=== PATIENT | male | born 1985 | race Caucasian/White ===

== ENCOUNTER 2019-01-04 13:20 | Emergency (ER) | payer OTHER, MEDICAID, SELFPAY ==
[2019-01-04 13:28] VITALS: BP 144/94; PULSE 105; RESP 18; O2SAT 96
[2019-01-04 14:00] VITALS: BP 167/99; PULSE 114; RESP 16; O2SAT 93
--- NOTE | 2019-01-04 14:03 | ED.GIBLEED ---
HPI - GI Bleed General Chief complaint: GI Bleed Stated complaint: Throwing Up Blood Time Seen by Provider: 01/04/19 13:23 Source: patient Mode of arrival: Ambulatory History of Present Illness HPI Narrative: 33-year-old male nonsmoker with extensive history of heavy alcohol consumption including at least 6 beers and 3 cocktails daily presents with 2 episodes today of a large volume of bright red emesis. He is a bit dizzy and lightheaded and has ongoing nausea. He denies any known history of varices. He has no history of GI bleed in the past and no known liver history. He has been drinking heavy for about 8 years. He denies the use of Tylenol, blood thinners or NSAIDs. He denies any known ulcers. He has had no change in bowel habits and denies black, dark or tarry stool. complaint: gross hematemesis Onset (ago): hour(s) Pain Consistency: constant Severity: moderate Relieving factors: none Exacerbating factors: none Context: alcohol abuse Associated symptoms: abdominal pain, nausea and loss of appetite Treatments Prior to Arrival: none Related Data Home Medications Medication Instructions Recorded Confirmed Pepcid AC 1 tab PO PRN PRN 01/04/19 01/04/19 naproxen sodium [Aleve] 220 mg PO PRN PRN 01/04/19 01/04/19 Allergies Allergy/AdvReac Type Severity Reaction Status Date / Time No Known Drug Allergies Allergy Verified 01/04/19 13:31 Review of Systems Constitutional Constitutional: Denies chills, Denies fatigue, Denies fever(s), Denies frequent falls, Denies lethargy and Denies weakness Eyes Eyes: Denies change in vision, Denies eye discharge, Denies irritation and Denies loss of vision ENT Ears, Nose, Mouth, and Throat: Denies change in voice, Denies dizziness, Denies neck pain, Denies sore throat and Denies throat swelling Cardiovascular Cardiovascular: Denies chest pain, Denies irregular heart rhythm, Denies lightheadedness, Denies palpitations, Denies dyspnea, Denies dyspnea on exertion and Denies orthopnea Respiratory Respiratory: Denies cough, Denies dyspnea, Denies dyspnea on exertion and Denies wheezing Gastrointestinal Gastrointestinal: Reports abdominal pain, Denies change in bowel habits, Denies diarrhea, Reports nausea, Reports vomiting and Reports hematemesis Genitourinary Genitourinary: Denies hematuria, Denies flank pain, Denies urinary incontinence and Denies urinary urgency Musculoskeletal Musculoskeletal: Denies back pain, Denies muscle weakness, Denies neck pain, Denies numbness and Denies tingling Integumentary/Breasts Skin/Breast: Denies pruritus, Denies erythema, Denies rash and Denies wounds Neurologic Neurologic: Denies behavioral changes, Denies confusion, Denies dizziness, Denies frequent falls, Denies loss of vision, Denies numbness, Denies tingling and Denies weakness Psychiatric Psychiatric: Denies anxiety, Denies behavioral changes, Denies confusion, Denies depression, Denies homicidal ideation and Denies suicidal ideation Endocrine Endocrine: Denies fatigue, Denies flushing and Denies palpitations Hematologic/Lymphatic Hematologic/Lymphatic: Denies easy bruising Allergic/Immunologic Allergic/Immunologic: Denies urticaria, Denies throat swelling and Denies wheezing PFSH Social History Smoking Status: Current every day smoker Social History Smoking Status: Current every day smoker Exam Narrative Exam Narrative: GENERAL: [33] year old patient appears stated age. Well-nourished, well-developed patient, in mild distress. Diaphoretic HEAD: Atraumatic. Normocephalic. EYES: Pupils equal round and reactive. Extraocular motions intact. No scleral icterus. No injection or drainage. ENT: Nose without bleeding, purulent drainage. Throat without erythema, tonsillar hypertrophy or exudate. Airway patent. NECK: Trachea midline. Non tender CARDIOVASCULAR: Tachycardic rate regular rhythm without murmurs, gallops, or rubs. RESPIRATORY: Clear to auscultation. Breath sounds equal bilaterally. No wheezes, rales, or rhonchi. GASTROINTESTINAL: Abdomen soft, generalized tenderness, nondistended. EXTREMITIES: No edema or joint tenderness. BACK: Nontender without deformity or crepitance. No flank tenderness. NEURO: AOx3. SKIN: No rash or erythema of visible areas Initial Vital Signs Initial Vital Signs: Vital Signs Pulse Rate 105 H 01/04/19 13:28 Respiratory Rate 18 01/04/19 13:28 Blood Pressure 144/94 H 01/04/19 13:28 Pulse Oximetry 96 01/04/19 13:28 Course Orders Ordered: ED Orders 01/04/19 14:00 Complete Blood Count AUTO DIFF Stat Comprehensive Metabolic Panel Stat Ethanol (ETOH) Stat Prothrombin Time INR Stat Type and Screen Stat 01/04/19 14:38 Lactate (Lactic Acid) Stat Octreotide Acetate 500 mcg/ (Sodium Chloride) 101 mls @ 10.1 mls/hr IV CONT OKSANA; Protocol Last Admin: 01/04/19 15:14 Dose: 50 mcg/hr, 10.1 mls/hr Documented by: EKTA Pantoprazole Sodium 80 mg/ (Sodium Chloride) 100 mls @ 10 mls/hr IV CONT OKSANA Last Admin: 01/04/19 15:10 Dose: 8 mg/hr, 10 mls/hr Documented by: EKTA Sodium Chloride (Normal Saline 0.9%) 1,000 mls @ 125 mls/hr IV CONT OSKANA Last Admin: 01/04/19 15:10 Dose: 125 mls/hr Documented by: EKTA Discontinued Medications Ceftriaxone Sodium/Dextrose (Rocephin) 2 gm in 50 mls @ 100 mls/hr IV NOW ONE Stop: 01/04/19 15:42 Last Infusion: 01/04/19 16:29 Dose: 0 mls/hr Documented by: Admin: 01/04/19 15:34 Dose: 100 mls/hr Documented by: EKTA Octreotide Acetate (Sandostatin) 50 mcg IV NOW ONE Stop: 01/04/19 14:15 Last Admin: 01/04/19 15:12 Dose: 50 mcg Documented by: EKTA Pantoprazole Sodium (Protonix) 80 mg IV NOW ONE Stop: 01/04/19 14:15 Last Admin: 01/04/19 15:12 Dose: 80 mg Documented by: EKTA Consultations Consultation #1: Dr. Torres consulted, happy to help care for the patient upon his arrival, recommends admission to hospitalist Consultation #2: Dr. Concepcion happy to accept Vital Signs Vital signs: Vital Signs - 8 hr 01/04/19 13:28 01/04/19 14:00 01/04/19 15:08 Pulse Rate 105 H 114 H 107 H Respiratory Rate 18 16 18 Blood Pressure 144/94 H Blood Pressure [Right Arm] 167/99 H 156/81 H Pulse Oximetry 96 93 95 MDM - GI Bleed Lab Data Result diagrams: 01/04/19 14:00 01/04/19 14:00 Labs: Lab Results 01/04/19 01/04/19 01/04/19 Range/Units 14:00 14:00 14:00 WBC 6.8 (4.5-11.0) X10^3/uL RBC 4.24 L (4.5-5.9) X10^6/uL Hgb 14.5 (13.5-17.5) g/dL Hct 42.5 (41-53) % MCV 100.3 H (80-100) fL MCH 34.2 H (26-34) PG MCHC 34.2 (30-36) % RDW 13.5 (11.6-14.8) % Plt Count 307 (150-400) X10^3/uL Neut % (Auto) 73.8 (50-75) % Lymph % (Auto) 17.0 L (25-40) % Platte % (Auto) 7.5 (3-14) % Eos % (Auto) 1.0 L (2-4) % Baso % (Auto) 0.7 (0-2) % Neut # (Auto) 5000 (0823-1601) /uL Lymph # (Auto) 1200 (6675-7970) /uL Platte # (Auto) 500 (0-900) /uL Eos # (Auto) 100 (0-450) /uL Baso # (Auto) 0 (0-100) /uL PT (10.1-12.7) SECONDS INR (0.9-1.3) Sodium 141 (137-145) mmol/L Potassium 3.9 (3.4-5.1) mmol/L Chloride 100 (98-107) mmol/L Carbon Dioxide 22 (22-32) mmol/L BUN 13 (9-20) mg/dL Creatinine 0.90 (0.66-1.25) mg/dL Estimated GFR > 60.0 (>60) mL/min BUN/Creatinine Ratio 14.4 (6-22) Glucose 130 H (70-100) mg/dL Lactate (0.7-2.1) mmol/L Calcium 9.3 (8.4-10.2) mg/dL Total Bilirubin 0.3 (0.2-1.3) mg/dL AST 51 (17-59) IU/L ALT 61 (21-72) IU/L Alkaline Phosphatase 71 (38-126) U/L Total Protein 8.0 (6.3-8.2) g/dL Albumin 4.8 (3.5-5.0) g/dL Globulin 3.2 (1.7-4.1) g/dL Albumin/Globulin Ratio 1.5 (1.0-2.8) Ethyl Alcohol ( - 10) mg/dL Blood Type A Positive Antibody Screen Negative 01/04/19 01/04/19 01/04/19 Range/Units 14:00 14:00 14:38 WBC (4.5-11.0) X10^3/uL RBC (4.5-5.9) X10^6/uL Hgb (13.5-17.5) g/dL Hct (41-53) % MCV (80-100) fL MCH (26-34) PG MCHC (30-36) % RDW (11.6-14.8) % Plt Count (150-400) X10^3/uL Neut % (Auto) (50-75) % Lymph % (Auto) (25-40) % Platte % (Auto) (3-14) % Eos % (Auto) (2-4) % Baso % (Auto) (0-2) % Neut # (Auto) (0333-6352) /uL Lymph # (Auto) (6944-2711) /uL Platte # (Auto) (0-900) /uL Eos # (Auto) (0-450) /uL Baso # (Auto) (0-100) /uL PT 10.8 (10.1-12.7) SECONDS INR 0.9 (0.9-1.3) Sodium (137-145) mmol/L Potassium (3.4-5.1) mmol/L Chloride (98-107) mmol/L Carbon Dioxide (22-32) mmol/L BUN (9-20) mg/dL Creatinine (0.66-1.25) mg/dL Estimated GFR (>60) mL/min BUN/Creatinine Ratio (6-22) Glucose (70-100) mg/dL Lactate 2.6 H (0.7-2.1) mmol/L Calcium (8.4-10.2) mg/dL Total Bilirubin (0.2-1.3) mg/dL AST (17-59) IU/L ALT (21-72) IU/L Alkaline Phosphatase (38-126) U/L Total Protein (6.3-8.2) g/dL Albumin (3.5-5.0) g/dL Globulin (1.7-4.1) g/dL Albumin/Globulin Ratio (1.0-2.8) Ethyl Alcohol 204 H ( - 10) mg/dL Blood Type Antibody Screen Critical Care Time Critical Care Time Critical Care Time: Yes Total Critical Care Time: 30 Attestation: The high probability of a clinically significant, sudden or life threatening deterioration of the [GI/CV] system(s) required my full and direct attention, intervention and personal management. The aggregate critical care time was [30] minutes. This time is in addition to time spent performing reported procedures but includes the following: [x] Data Review and interpretation [x] Patient assessment and monitoring of vital signs [x] Documentation [x] Medication orders and management Discharge Plan Departure Prescriptions: No Action naproxen sodium [Aleve] 220 mg Capsule 220 mg PO PRN PRN (Reason: pain) RF: 0 Pepcid AC 1 tab PO PRN PRN (Reason: Acid Reflux) RF: 0
[2019-01-04 14:15] LABS: Add Manual Diff / Slide Review NO; Basophils Absolute Auto 0 /uL (0-100); Basophils Percent Auto 0.7 % (0-2); Eosinophils Absolute Auto 100 /uL (0-450); Hematocrit 42.5 % (41-53); Hemoglobin 14.5 g/dL (13.5-17.5); Lymphocytes Absolute Auto 1200 /uL (1100-4500); Mean Corpuscular HGB Conc 34.2 % (30-36); Mean Corpuscular Hemoglobin 34.2 PG (26-34); Mean Corpuscular Volume 100.3 fL (80-100); Monocytes Absolute Auto 500 /uL (0-900); Monocytes Percent Auto 7.5 % (3-14); Neutrophils Absolute Auto 5000 /uL (1500-7000); Neutrophils Percent Auto 73.8 % (50-75); Platelet Count 307 X10^3/uL (150-400); Red Blood Cell Count 4.24 X10^6/uL (4.5-5.9); Red Cell Distribution Width 13.5 % (11.6-14.8); White Blood Cell Count 6.8 X10^3/uL (4.5-11.0)
[2019-01-04 14:27] LABS: Alanine Aminotransferase 61 IU/L (21-72); Albumin 4.8 g/dL (3.5-5.0); Albumin Globulin Ratio 1.5 (1.0-2.8); Alkaline Phosphatase 71 U/L (38-126); Aspartate Aminotransferase 51 IU/L (17-59); BUN Creatinine Ratio 14.4 (6-22); Bilirubin Total 0.3 mg/dL (0.2-1.3); Blood Urea Nitrogen 13 mg/dL (9-20); Calcium 9.3 mg/dL (8.4-10.2); Carbon Dioxide 22 mmol/L (22-32); Chloride 100 mmol/L (98-107); Estimated Glomerular Filt Rate > 60.0 mL/min (>60); Globulin 3.2 g/dL (1.7-4.1); Glucose 130 mg/dL (70-100); HEMOLYSIS < 15 (0-50); Potassium 3.9 mmol/L (3.4-5.1); Sodium 141 mmol/L (137-145)
[2019-01-04 14:53] LABS: Ethanol (ETOH) 204 mg/dL
[2019-01-04 14:56] LABS: Lactate (Lactic Acid) 2.6 mmol/L (0.7-2.1)
[2019-01-04 15:08] VITALS: BP 156/81; PULSE 107; RESP 18; O2SAT 95
[2019-01-04] MEDS: PANTOPRAZOLE 80 MG in SODIUM CHLORIDE 0.9% 100 ML 10 ML IV (15:10)
[2019-01-04] MEDS: SODIUM CHLORIDE 0.9% 1,000 ML 125 ML IV (15:10)
[2019-01-04] MEDS: PANTOPRAZOLE 40 MG VIAL 80 MG IV (15:12)
[2019-01-04] MEDS: OCTREOTIDE 100 MCG/ML VIAL 50 MCG IV (15:12)
[2019-01-04] MEDS: OCTREOTIDE 500 MCG in SODIUM CHLORIDE 0.9% 100 ML 10.1 ML IV (15:14)
[2019-01-04 15:28] LABS: INR 0.9 (0.9-1.3); Prothrombin Time 10.8 SECONDS (10.1-12.7)
[2019-01-04] MEDS: CEFTRIAXONE 2 GM/50 ML FROZ.PIGGY IV (15:34)
[2019-01-04 16:41] LABS: Reflexed Lactate in 2 Hours Y
== END 2019-01-04 17:25 | disposition short-term general hospital (02) ==
PROVIDERS: Emergency Provider Emergency Medicine
DX: K92.2 Gastrointestinal hemorrhage, unspecified (principal)
CPT/HCPCS: 36591; 80053; 80320; 83605; 85025; 85610; 86850; 86900; 86901; 96365; 96367; 96368; 96375; 99283; 99284; C9113; J0696; J2354

== ENCOUNTER → 2020-07-21 11:16 | Outpatient (CLI) | payer OTHER, MEDICAID, SELFPAY ==
[2020-07-21] MEDS: COVID-19 VACC, Ad26(JANSSEN)/PF 0.5 ML IM (11:30)
== END ==
PROVIDERS: Visit Provider Internal Medicine
DX: Z23 Encounter for immunization (principal)
CPT/HCPCS: 0031A; 91303

== ENCOUNTER → 2021-03-21 09:26 | Outpatient (CLI) | payer OTHER, MEDICAID, SELFPAY ==
--- NOTE | 2021-03-21 09:30 | DI.RAD.S_ITS ---
PROCEDURE: XR THORACIC SPINE 3V INDICATIONS: PAIN IN RIGHT HIP AND BACK TECHNIQUE: 3 views of the thoracic spine were acquired. COMPARISON: None. FINDINGS: Bones: No fractures or dislocations. No suspicious bony lesions. Very mild degenerative endplate changes in lower thoracic spine is seen. 12 pairs of ribs are noted, and appear intact where visualized. Soft tissues: No paravertebral stripe thickening. IMPRESSION: Very mild degenerative endplate changes in lower thoracic spine. No compression fracture or spondylolisthesis. Dictated by: Paulo Thomas M.D. on 03/21/2021 at 9:59 Approved by: Paulo Thomas M.D. on 03/21/2021 at 10:00
--- NOTE | 2021-03-21 09:30 | DI.RAD.S_ITS ---
PROCEDURE: XR LUMBAR SPINE 2-3V INDICATIONS: PAIN IN RIGHT HIP AND BACK TECHNIQUE: 3 views of the lumbar spine were acquired. COMPARISON: None. FINDINGS: Bones: 5 [id number] vertebrae are present. There is normal bony alignment. No vertebral body compression fractures. No suspicious bony lesions. Soft tissues: Overlying bowel gas pattern is normal. No suspicious soft tissue calcifications. IMPRESSION: Unremarkable radiographic examination of lumbar spine. Dictated by: Paulo Thomas M.D. on 03/21/2021 at 9:59 Approved by: Paulo Thomas M.D. on 03/21/2021 at 9:59
--- NOTE | 2021-03-21 09:30 | DI.RAD.S_ITS ---
PROCEDURE: XR HIP W PEL IF DONE RT 2V INDICATIONS: PAIN IN RIGHT HIP AND BACK TECHNIQUE: AP pelvis with lateral view(s) of the right hip(s). COMPARISON: None. FINDINGS: Bones: No fractures or dislocations. Mild right hip joint osteoarthritic changes are seen with superior joint space narrowing and subchondral sclerosis. No evidence of avascular necrosis of femoral head. Prominence of right femoral head neck junction is seen which can be seen associated with CAM type femoral acetabular impingement. Pelvic ring appears intact. No suspicious bony lesions. Soft tissues: The visualized bowel gas pattern is normal. No suspicious soft tissue calcifications. IMPRESSION: Mild right hip joint osteoarthritis. No fracture or dislocation. No evidence of avascular necrosis. Mild prominence of right femoral head neck junction which can be seen associated with CAM type femoral acetabular impingement. If indicated, MRI of hip can be done for further evaluation of internal derangement. Dictated by: Paulo Thomas M.D. on 03/21/2021 at 9:57 Approved by: Paulo Thomas M.D. on 03/21/2021 at 9:59
== END ==
PROVIDERS: PCP Physician Assistant; Referring Provider Physician Assistant; Visit Provider Physician Assistant
DX: M17.11 Unilateral primary osteoarthritis, right knee (principal); M25.551 Pain in right hip; M54.6 Pain in thoracic spine; M54.50 Low back pain, unspecified
CPT/HCPCS: 72072; 72100; 73502

== ENCOUNTER → 2022-04-29 15:15 | Outpatient (CLI) | payer OTHER, MEDICAID, SELFPAY ==
[2022-04-29 16:08] LABS: Add Manual Diff / Slide Review NO; Basophils Absolute Auto 0 /uL (0-100); Basophils Percent Auto 0.5 % (0-2); Eosinophils Absolute Auto 0 /uL (0-450); Eosinophils Percent Auto 0.8 % (2-4); Hematocrit 41.9 % (41-53); Hemoglobin 14.1 g/dL (13.5-17.5); Lymphocytes Absolute Auto 1200 /uL (1100-4500); Lymphocytes Percent Auto 19.7 % (25-40); Mean Corpuscular HGB Conc 33.6 % (30-36); Mean Corpuscular Hemoglobin 34.6 PG (26-34); Mean Corpuscular Volume 102.9 fL (80-100); Monocytes Absolute Auto 800 /uL (0-900); Monocytes Percent Auto 12.9 % (3-14); Neutrophils Absolute Auto 4000 /uL (1500-7000); Neutrophils Percent Auto 66.1 % (50-75); Platelet Count 234 X10^3/uL (150-400); Red Blood Cell Count 4.08 X10^6/uL (4.5-5.9); Red Cell Distribution Width 14.5 % (11.6-14.8)
[2022-04-29 16:22] LABS: Alanine Aminotransferase 56 IU/L (<50); Alkaline Phosphatase 76 U/L (38-126); Aspartate Aminotransferase 70 IU/L (17-59); BUN Creatinine Ratio 12.1 (6-22); Bilirubin Total 1.1 mg/dL (0.2-1.3); Blood Urea Nitrogen 11 mg/dL (9-20); Calcium 9.6 mg/dL (8.4-10.2); Carbon Dioxide 28 mmol/L (22-32); Chloride 94 mmol/L (98-107); Estimated Glomerular Filt Rate > 60 mL/min (>60); Glucose 98 mg/dL (70-100); Potassium 3.8 mmol/L (3.4-5.1); Sodium 134 mmol/L (137-145); Total Protein 8.3 g/dL (6.3-8.2)
[2022-04-29 17:08] LABS: Vitamin B12 479 pg/mL (239-931)
[2022-04-29 18:52] LABS: Thyroid Stimulating Hormone 2.56 uIU/mL (0.47-4.68)
[2022-05-03 15:53] LABS: Albumin 4.5 g/dL (3.5-5.0); Albumin Globulin Ratio 1.2 (1.0-2.8); Globulin 3.8 g/dL (1.7-4.1); HEMOLYSIS 24 (0-50)
== END ==
PROVIDERS: PCP Family Medicine; Referring Provider Family Medicine; Visit Provider Family Medicine
DX: F10.19 Alcohol abuse with unspecified alcohol-induced disorder (principal); K21.9 Gastro-esophageal reflux disease without esophagitis; R03.0 Elevated blood-pressure reading, without diagnosis of hypertension
CPT/HCPCS: 36415; 80053; 82607; 84443; 85025

== ENCOUNTER → 2022-10-31 15:56 | Outpatient (CLI) | payer OTHER, MEDICAID, SELFPAY ==
[2022-10-31 16:30] LABS: Add Manual Diff / Slide Review NO; Basophils Absolute Auto 100 /uL (0-100); Basophils Percent Auto 1.2 % (0-2); Eosinophils Absolute Auto 100 /uL (0-450); Eosinophils Percent Auto 0.9 % (2-4); Hematocrit 40.1 % (41-53); Hemoglobin 13.9 g/dL (13.5-17.5); Lymphocytes Absolute Auto 800 /uL (1100-4500); Lymphocytes Percent Auto 9.2 % (25-40); Mean Corpuscular HGB Conc 34.6 % (30-36); Mean Corpuscular Hemoglobin 37.5 PG (26-34); Mean Corpuscular Volume 108.5 fL (80-100); Monocytes Absolute Auto 500 /uL (0-900); Monocytes Percent Auto 6.4 % (3-14); Neutrophils Absolute Auto 7000 /uL (1500-7000); Neutrophils Percent Auto 82.3 % (50-75); Platelet Count 237 X10^3/uL (150-400); Red Cell Distribution Width 14.7 % (11.6-14.8); White Blood Cell Count 8.5 X10^3/uL (4.5-11.0)
[2022-10-31 16:53] LABS: Alanine Aminotransferase 89 IU/L (<50); Albumin 4.5 g/dL (3.5-5.0); Albumin Globulin Ratio 1.5 (1.0-2.8); Alkaline Phosphatase 73 U/L (38-126); Aspartate Aminotransferase 91 IU/L (17-59); BUN Creatinine Ratio 12.5 (6-22); Bilirubin Total 0.8 mg/dL (0.2-1.3); Blood Urea Nitrogen 11 mg/dL (9-20); Calcium 9.6 mg/dL (8.4-10.2); Carbon Dioxide 27 mmol/L (22-32); Chloride 98 mmol/L (98-107); Cholesterol 175 mg/dL (140-199); Estimated Glomerular Filt Rate > 60 mL/min (>60); Gamma Glutamyl Transpeptidase 71 U/L (15-73); Globulin 3.1 g/dL (1.7-4.1); Glucose 95 mg/dL (70-100); HDL Cholesterol 104 mg/dL (40-60); HEMOLYSIS 26 (0-50); LDL Cholesterol Calculated 60 mg/dL (<100); Potassium 4.1 mmol/L (3.4-5.1); Sodium 134 mmol/L (137-145); Total Protein 7.6 g/dL (6.3-8.2); Triglycerides 57 mg/dL (35-150)
[2022-10-31 17:09] LABS: Free T4, Direct Thyroxine 1.05 ng/dL (0.78-2.19)
[2022-10-31 17:22] LABS: Thyroid Stimulating Hormone 2.36 uIU/mL (0.47-4.68)
[2022-11-01 17:53] LABS: Hep C Virus Ab w/Reflex Quant NEGATIVE s/c (NEGATIVE)
== END ==
PROVIDERS: PCP Family Medicine; Referring Provider Nurse Practitioner Family; Visit Provider Nurse Practitioner Family
DX: Z11.59 Encounter for screening for other viral diseases (principal); Z13.220 Encounter for screening for lipoid disorders; I48.91 Unspecified atrial fibrillation; F10.10 Alcohol abuse, uncomplicated; R03.0 Elevated blood-pressure reading, without diagnosis of hypertension
CPT/HCPCS: 36415; 80053; 80061; 82977; 84439; 84443; 84481; 85025; 86803

== ENCOUNTER → 2022-11-11 07:52 | Outpatient (CLI) | payer OTHER, MEDICAID, SELFPAY ==
--- NOTE | 2022-11-11 | DI.ECHO.S_ITS ---
[facility] +---------+ : : [address] : : : : [id number] : : : : Phone: [phone] Echocardiogram Report + + :Name: MELLY NICHOLSON Study Date: 11/11/2022 Height: 75 in : :[facility] ReadingLocation: Weight: 255 lb : : Gender: Male BSA: 2.4 m2 : :: 1985 Age: 37 yrs BP: 160/108 mmHg: :Reason For Study: Atrial Fibrillation : :Ordering Physician: KATHRYN, : :SOM Goodwin Performed By: Ritika Vargas : :Referring: SOM PERALTA : + + Interpretation Summary The left ventricle is normal in size. The ejection fraction is estimated to be 60-65%. Left ventricular systolic function is normal. The right ventricle is normal size. The right ventricular systolic function is normal. All the valves were not well visualized however no gross significant abnormalities seen. The IVC is of normal diameter and collapses greater than 50% with a sniff. This suggests a low right atrial pressure of 3 mm Hg. Procedure: A two-dimensional transthoracic echocardiogram with color flow and Doppler was performed. The study quality was technically difficult. There is no prior echocardiogram noted for this patient. A contrast injection of Definity was performed to improve assessment of LV function. The patient was in normal sinus rhythm during the exam. Left Ventricle: The left ventricle is normal in size. There is no thrombus. The ejection fraction is estimated to be 60-65%. Left ventricular systolic function is normal. There are no focal wall motion abnormalities. Diastolic parameters suggest probable normal left ventricular diastolic function and normal filling pressures. Right Ventricle: The right ventricle is normal size. The right ventricular systolic function is normal. Atria: The left atrial size is normal. Right atrial size is normal. There is no Doppler evidence for an interatrial shunt. Mitral Valve: The mitral valve is normal. There is no mitral valve stenosis. There is no mitral regurgitation noted. Aortic Valve: The aortic valve is not well visualized. There is no aortic valve stenosis. No aortic regurgitation is present. Tricuspid Valve: The tricuspid valve is normal. There is no tricuspid stenosis. There is trace tricuspid regurgitation. Pulmonary artery pressures cannot be estimated because of the lack of a measurable TR jet velocity. Pulmonic Valve: The pulmonic valve is not well visualized. There is no pulmonic valvular stenosis. There is no pulmonic valvular regurgitation. Great Vessels: The aortic root is normal size. The ascending aorta is normal in size. The pulmonary artery is normal size. The IVC is of normal diameter and collapses greater than 50% with a sniff. This suggests a low right atrial pressure of 3 mm Hg. Pericardium/ Pleura There is no pericardial effusion. There is no pleural effusion. MMode/2D Measurements & Calculations LVOT diam: 2.0 cm LA A2 area: 12.2 cm2 Ao root diam: 3.2 cm LA A4 area: 18.5 cm2 asc Aorta Diam: 3.2 cm LA length (vol): 5.0 cm LA vol: 38.6 ml LA vol index: 15.9 ml/m2 RA long axis: 5.5 cm RVD1 (basal): 4.0 cm RA area: 20.4 cm2 RA vol: 64.5 ml RA : 26.5 ml/m2 LVLs ap4: 5.7 cm LVLd ap2: 6.2 cm LVLs ap2: 5.9 cm TAPSE_phl: 2.6 cm Doppler Measurements & Calculations Ao V2 max: 133.0 cm/sec LVOT Max Evelio: 93.3 cm/sec Ao V2 mean: 94.4 cm/sec LV V1 max P.5 mmHg Ao max P.0 mmHg LV V1 VTI: 20.7 cm Ao mean P.0 mmHg BRONSON(I,D): 2.2 cm2 Ao V2 VTI: 29.4 cm BRONSON(V,D): 2.2 cm2 sev ratio: 0.70 BRONSON indexed to BSA (cm^2/m^2): 0.91 MV E max evelio: 110.0 cm/sec PA V2 max: 86.6 cm/sec MV A max evelio: 72.4 cm/sec PA V2 mean: 61.8 cm/sec MV E/A: 1.5 PA mean P.0 mmHg Med Peak E' Evelio: 9.5 cm/sec PA pr(Accel): 38.5 mmHg E/E' med: 11.6 Lat Peak E' Evelio: 11.8 cm/sec E/E' lat: 9.3 E/e' average: 10.5 MV dec time: 0.17 sec SV(LVOT): 65.0 ml AV VR_phl: 0.70 BRONSON(VTI)/BSA_phl: 0.91 MV P1/2t-pr_phl: 50.0 msec Reading Physician:12:11 PM
== END ==
PROVIDERS: PCP Nurse Practitioner Family; Referring Provider Nurse Practitioner Family; Visit Provider Nurse Practitioner Family
DX: I48.91 Unspecified atrial fibrillation (principal)
CPT/HCPCS: 93306; Q9957

== ENCOUNTER → 2022-12-31 15:40 | Outpatient (CLI) | payer OTHER, MEDICAID, SELFPAY ==
--- NOTE | 2022-12-31 | DI.US.S_ITS ---
PROCEDURE: US THYROID INDICATIONS: THYROTOXICOSIS TECHNIQUE: Real-time scanning was performed of the thyroid gland, with image documentation. COMPARISON: None. FINDINGS: Right: Thyroid lobe measures 4.1 x 1.7 x 1.0 cm, and is homogeneous in echotexture. Left: Thyroid lobe measures 4.3 x 1.5 x 1.9 cm, and is homogenous in echotexture. Isthmus: 1.9 mm thick. Thyroid parenchyma is diffusely heterogenous without focal nodules. Vascularity is unremarkable. IMPRESSION: Diffusely heterogenous thyroid parenchyma without focal nodules ACR TI-RADS definitions and recommendations: TI-RADS 1 (benign): 0 points. FNA not needed. TI-RADS 2 (not suspicious): 2 points. FNA not needed. TI-RADS 3 (mildly suspicious): 3 points. * FNA if 2.5 cm or larger, follow up if 1.5 cm or larger (at 1, 3, and 5 years). TI-RADS 4 (moderately suspicious): 4-6 points. * FNA if 1.5 cm or larger, follow up if 1 cm or larger (at 1, 2, 3, and 5 years). TI-RADS 5 (highly suspicious): 7 points or more. * FNA if 1 cm or larger, follow up if 0.5 cm or larger (every year for 5 years). Approved by: Alirio Julien M.D. on 12/31/2022 at 16:21
== END ==
PROVIDERS: PCP Nurse Practitioner Family; Referring Provider Nurse Practitioner Family; Visit Provider Nurse Practitioner Family
DX: E05.90 Thyrotoxicosis, unspecified without thyrotoxic crisis or storm (principal)
CPT/HCPCS: 76536

== ENCOUNTER → 2023-02-26 11:03 | Outpatient (CLI) | payer OTHER, MEDICAID, SELFPAY ==
[2023-02-26 12:36] LABS: Add Manual Diff / Slide Review NO; Basophils Absolute Auto 0 /uL (0-100); Basophils Percent Auto 0.4 % (0-2); Eosinophils Absolute Auto 100 /uL (0-450); Eosinophils Percent Auto 1.4 % (2-4); Lymphocytes Absolute Auto 1000 /uL (1100-4500); Lymphocytes Percent Auto 18.5 % (25-40); Mean Corpuscular HGB Conc 34.1 % (30-36); Mean Corpuscular Hemoglobin 35.3 PG (26-34); Mean Corpuscular Volume 103.4 fL (80-100); Monocytes Absolute Auto 700 /uL (0-900); Monocytes Percent Auto 12.4 % (3-14); Neutrophils Absolute Auto 3600 /uL (1500-7000); Neutrophils Percent Auto 67.3 % (50-75); Platelet Count 283 X10^3/uL (150-400); Red Blood Cell Count 3.96 X10^6/uL (4.5-5.9); Red Cell Distribution Width 13.5 % (11.6-14.8); White Blood Cell Count 5.3 X10^3/uL (4.5-11.0)
[2023-02-26 13:21] LABS: Alanine Aminotransferase 50 IU/L (<50); Albumin 4.2 g/dL (3.5-5.0); Albumin Globulin Ratio 1.4 (1.0-2.8); Alkaline Phosphatase 67 U/L (38-126); Aspartate Aminotransferase 43 IU/L (17-59); BUN Creatinine Ratio 15.8 (6-22); Bilirubin Total 1.1 mg/dL (0.2-1.3); Blood Urea Nitrogen 12 mg/dL (9-20); Carbon Dioxide 26 mmol/L (22-32); Chloride 99 mmol/L (98-107); Estimated Glomerular Filt Rate > 60 mL/min (>60); Gamma Glutamyl Transpeptidase 99 U/L (15-73); Glucose 95 mg/dL (70-100); HEMOLYSIS < 15 (0-50); Potassium 4.6 mmol/L (3.4-5.1); Sodium 135 mmol/L (137-145); Total Protein 7.2 g/dL (6.3-8.2)
[2023-02-26 13:36] LABS: Free T3, Triiodothyronine Free 5.28 pg/mL (2.77-5.27); Free T4, Direct Thyroxine 1.11 ng/dL (0.78-2.19)
[2023-02-26 13:50] LABS: Thyroid Stimulating Hormone 1.44 uIU/mL (0.47-4.68)
[2023-02-26 14:12] LABS: Vitamin B12 431 pg/mL (239-931)
== END ==
PROVIDERS: PCP Nurse Practitioner Family; Referring Provider Nurse Practitioner Family; Visit Provider Nurse Practitioner Family
DX: E05.90 Thyrotoxicosis, unspecified without thyrotoxic crisis or storm (principal); R74.01 Elevation of levels of liver transaminase levels; D75.89 Other specified diseases of blood and blood-forming organs
CPT/HCPCS: 36415; 80053; 82607; 82977; 84439; 84443; 84481; 85025

== ENCOUNTER → 2023-06-30 10:47 | Outpatient (CLI) | payer OTHER, MEDICAID, SELFPAY ==
[2023-06-30 11:10] LABS: Add Manual Diff / Slide Review NO; Basophils Absolute Auto 0 /uL (0-100); Basophils Percent Auto 0.5 % (0-2); Eosinophils Absolute Auto 0 /uL (0-450); Eosinophils Percent Auto 0.8 % (2-4); Hematocrit 39.8 % (41-53); Hemoglobin 13.7 g/dL (13.5-17.5); Lymphocytes Absolute Auto 800 /uL (1100-4500); Lymphocytes Percent Auto 14.3 % (25-40); Mean Corpuscular HGB Conc 34.5 % (30-36); Mean Corpuscular Hemoglobin 36.9 PG (26-34); Monocytes Absolute Auto 900 /uL (0-900); Monocytes Percent Auto 15.5 % (3-14); Neutrophils Absolute Auto 4100 /uL (1500-7000); Neutrophils Percent Auto 68.9 % (50-75); Platelet Count 184 X10^3/uL (150-400); Red Blood Cell Count 3.72 X10^6/uL (4.5-5.9); Red Cell Distribution Width 13.4 % (11.6-14.8); White Blood Cell Count 5.9 X10^3/uL (4.5-11.0)
[2023-06-30 11:44] LABS: Alanine Aminotransferase 82 IU/L (<50); Albumin 4.1 g/dL (3.5-5.0); Albumin Globulin Ratio 1.2 (1.0-2.8); Alkaline Phosphatase 70 U/L (38-126); Aspartate Aminotransferase 97 IU/L (17-59); BUN Creatinine Ratio 15.2 (6-22); Bilirubin Total 1.1 mg/dL (0.2-1.3); Blood Urea Nitrogen 12 mg/dL (9-20); Calcium 9.5 mg/dL (8.4-10.2); Carbon Dioxide 23 mmol/L (22-32); Chloride 106 mmol/L (98-107); Estimated Glomerular Filt Rate > 60 mL/min (>60); Gamma Glutamyl Transpeptidase 98 U/L (15-73); Globulin 3.3 g/dL (1.7-4.1); Glucose 100 mg/dL (70-100); HEMOLYSIS < 15 (0-50); Potassium 4.1 mmol/L (3.4-5.1); Sodium 139 mmol/L (137-145); Total Protein 7.4 g/dL (6.3-8.2)
[2023-06-30 11:57] LABS: Free T3, Triiodothyronine Free 4.86 pg/mL (2.77-5.27); Free T4, Direct Thyroxine 1.04 ng/dL (0.78-2.19)
[2023-06-30 12:11] LABS: Thyroid Stimulating Hormone 1.74 uIU/mL (0.47-4.68)
[2023-06-30 12:45] LABS: Folate 10.2 ng/mL (2.76-20.0); Vitamin B12 488 pg/mL (239-931)
== END ==
LOC: LAB 10:48
PROVIDERS: PCP Nurse Practitioner Family; Referring Provider Nurse Practitioner Family; Visit Provider Nurse Practitioner Family
DX: E05.90 Thyrotoxicosis, unspecified without thyrotoxic crisis or storm (principal); D75.89 Other specified diseases of blood and blood-forming organs; R74.01 Elevation of levels of liver transaminase levels
CPT/HCPCS: 36415; 80053; 82607; 82746; 82977; 84439; 84443; 84481; 85025

== ENCOUNTER → 2023-07-11 13:37 | Outpatient (CLI) | payer OTHER, MEDICAID, SELFPAY ==
--- NOTE | 2023-07-11 13:39 | DI.US.S_ITS ---
PROCEDURE: US ABDOMEN COMPLETE INDICATIONS: Elevation of liver enzymes TECHNIQUE: Real-time scanning was performed of the abdominal and retroperitoneal organs, with image documentation. COMPARISON: None. FINDINGS: Liver: Moderately increased echogenicity. The posterior portion/deep field is not well seen. Gallbladder: Possible 5 millimeter polyp or stone. This is nonmobile. If this is of polyp, no dedicated follow-up imaging is necessary due to its small size. No sonographic Lacey sign. Biliary ducts: Intrahepatic bile ducts are non-dilated. Extrahepatic bile duct caliber measures 6 mm. Normal is 6-7 mm or less in diameter, or 10 mm or less post-cholecystectomy. Pancreas: Visualized portions of the pancreas are sonographically normal. Spleen: Spleen is normal in size and homogeneous in echotexture. Kidneys: Kidneys are normal in size and echotexture. Right kidney measures 12 cm long; left kidney measures 11 cm long. No hydronephrosis or nephrolithiasis. No solid masses. Aorta: Visualized aorta is normal in caliber at less than 3 cm. Iliacs: Proximal common iliac arteries are normal in caliber at less than 2.5 cm. IVC: Intrahepatic inferior vena cava is patent. Miscellaneous: No free abdominal fluid. IMPRESSION: Moderately increased hepatic echogenicity, most commonly due to steatosis, but can also be seen with other causes of liver disease. No pathologic biliary ductal dilation. Dictated by: Abel Gatica M.D. on 07/11/2023 at 15:42 Approved by: Abel Gatica M.D. on 07/11/2023 at 15:44
== END ==
PROVIDERS: PCP Nurse Practitioner Family; Referring Provider Nurse Practitioner Family; Visit Provider Nurse Practitioner Family
DX: R74.01 Elevation of levels of liver transaminase levels (principal)
CPT/HCPCS: 76700

== ENCOUNTER 2023-07-25 12:27 | Emergency (ER) | payer OTHER, MEDICAID, SELFPAY ==
[2023-07-25 12:32] VITALS: BP 158/89; PULSE 66; RESP 16; TEMP 36.6; O2SAT 99; BMI 32.5
--- NOTE | 2023-07-25 13:05 | PC.NURSE ---
R nare bleeding, pt states its has been intermittently bleeding most of the day. 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 having some clots and states can feel sinus filling with blood as well as upset stomach.
[2023-07-25] MEDS: OXYMETAZOLINE NASAL SPRAY 30 ML 2 SPRAYS NASAL (13:36)
--- NOTE | 2023-07-25 13:36 | ED.EPISTAXIS ---
HPI - Epistaxis <Natividad Minor PA-C - Last Filed: 07/25/23 14:35> General Chief complaint: Nasal Problem Stated complaint: bloody nose over 30 mins with clots Time Seen by Provider: 07/25/23 12:58 Source: patient and family Mode of arrival: Ambulatory History of Present Illness HPI Narrative: Patient is a 38-year-old male with history of hypertension, 1 episode of AFib presenting after morning of nose bleeding. He denies anticoagulant use. He reports that the bleeding initially started 2 days ago on Friday out of his left [place]. He states it bled for 5-6 minutes, he blew out a clot then it stopped. He attributed to his increased allergies and nasal irritation in the area he was working in [place]. He reports that he had bleeding from his right naris the following day with a similar duration 5-6 minutes and that stopped on its own. He denies clots on that day. He reports that today around noon, bleeding started again from his left near. He states that he is blown out multiple clots about a quarter-sized. He states that it came out as a Flood peel. He feels that his stomach is filling up with blood. He states that when he pinched the left side close, he felt his sinus fill with blood in it started drip out of his right nare. He reports feeling tired, but denies lightheadedness. He does endorse a headache this morning. Related Data Home Medications Medication Instructions Recorded Confirmed Pepcid AC 1 tab PO PRN PRN Acid Reflux 01/04/19 01/04/19 naproxen sodium 220 mg capsule 220 mg PO PRN PRN pain 01/04/19 01/04/19 (Aleve) Allergies Allergy/AdvReac Type Severity Reaction Status Date / Time No Known Drug Allergies Allergy Verified 01/04/19 13:31 Review of Systems <Natividad Minor PA-C - Last Filed: 07/25/23 14:35> Review of Systems Narrative: See HPI Patient History <Natividad Minor PA-C - Last Filed: 07/25/23 14:35> Social History Smoking Status: Former smoker Smoking Status: Former smoker alcohol intake frequency: 0-2 drinks per day Alcohol type: beer and hard liquor Substance Use Type: does not use Exam <Natividad Minor PA-C - Last Filed: 07/25/23 14:35> Initial Vital Signs Initial Vital Signs: Vital Signs Temperature 97.9 F 07/25/23 12:32 Pulse Rate 66 07/25/23 12:32 Respiratory Rate 16 07/25/23 12:32 Blood Pressure 158/89 H 07/25/23 12:32 Pulse Oximetry 99 07/25/23 12:32 Oxygen Delivery Method Room Air 07/25/23 12:32 GENERAL: 38 year old patient appears stated age. Well-developed patient, in no acute distress, pinching left nostril closed. HEAD: Atraumatic. Normocephalic. EYES: Pupils equal round. No scleral icterus. No injection or drainage. ENT: Inferior aspect of left nare has small amount of blood present, no bleeding noted in the upper turbinates, there is presence of increased swelling in bilateral nares. No source of active bleeding seen on visual exam. Patient has small bloody nasal drip during interview, no evidence of blood in the back of patient's throat during evaluation, no bleeding from gums or evidence of petechiae. RESPIRATORY: Speaking comfortably in normal tone of voice with no increased work of breathing. NEURO: AOx3. SKIN: No rash or erythema of visible areas, <Princess Pulido DO - Last Filed: 08/01/23 11:17> Initial Vital Signs Initial Vital Signs: Vital Signs Temperature 97.9 F 07/25/23 12:32 Pulse Rate 66 07/25/23 12:32 Respiratory Rate 16 07/25/23 12:32 Blood Pressure 158/89 H 07/25/23 12:32 Pulse Oximetry 99 07/25/23 12:32 Oxygen Delivery Method Room Air 07/25/23 12:32 Course <Natividad Minor PA-C - Last Filed: 07/25/23 14:35> Orders Ordered: Discontinued Medications Oxymetazoline HCl (Oxymetazoline Nasal [place] 30 Ml) 2 sprays NASAL NOW ONE Stop: 07/25/23 13:21 Last Admin: 07/25/23 13:36 Dose: 2 sprays Documented By: CTS Vital Signs Vital signs: Vital Signs - 8 hr 07/25/23 12:32 07/25/23 14:26 Temperature 97.9 F Pulse Rate 66 75 Respiratory Rate 16 Blood Pressure 158/89 H 112/74 Pulse Oximetry 99 100 Oxygen Delivery Method Room Air Room Air <Princess Pulido DO - Last Filed: 08/01/23 11:17> Orders Ordered: Discontinued Medications Oxymetazoline HCl (Oxymetazoline Nasal [place] 30 Ml) 2 sprays NASAL NOW ONE Stop: 07/25/23 13:21 Last Admin: 07/25/23 13:36 Dose: 2 sprays Documented By: CTS Vital Signs Vital signs: Vital Signs - 8 hr 07/25/23 12:32 07/25/23 14:26 Temperature 97.9 F Pulse Rate 66 75 Respiratory Rate 16 Blood Pressure 158/89 H 112/74 Pulse Oximetry 99 100 Oxygen Delivery Method Room Air Room Air MDM - Epistaxis <Natividad Minor PA-C - Last Filed: 07/25/23 14:35> MDM Narrative Medical decision making narrative: Patient is a 38-year-old male presenting for evaluation after a nosebleed ongoing for about 2 hours today with presence of clots. At present in the ER, bleed is a light drip and has improved after Afrin spray. Multiple etiologies for patient's symptoms considered including, but not limited to: Allergic rhinitis, anterior versus posterior bleed Discussed case with Dr. Pulido. Since bleeding is controlled with a drip, recommend clamping nares times 60 minutes after Afrin use. If bleeding still continues, she recommends using rhino rocket. Patient's bleeding stopped after conservative treatment with clamping and Afrin. Discussed with patient that he is clear for discharge home. Advised him to repeat treatment from today if bleeding should return. Advised him to follow up in the ER if bleeding becomes profuse again. Discussed that he may need further follow up with his primary care provider and I advised him to call and make an appointment to have continued follow up especially if bleeding should continue. He is agreeable with plan of care and feels comfortable going home. Patient's symptoms improved over duration of stay with above-stated therapies. Findings and discharge diagnosis discussed with patient/family followed by verbalization of understanding Return precautions discussed with patient/family whom verbalize understanding of diagnosis and plan Discharge Plan Departure Patient Disposition: Home Clinical Impression: Epistaxis Activity Restrictions/Additional Instructions: *You have been diagnosed with epistaxis which is a bloody nose. Your bleeding stopped today after use of Afrin and clamping. I recommend that if it starts bleeding again, you apply Afrin and use the nasal clamp for 60 minutes. You may apply ice to help reduce the bleeding as well. I recommend you lean forward instead of leaning back. Please follow up for further evaluation in the ER if you should have profuse bleeding despite nasal clamping and Afrin use, have lightheadedness or other concerning signs or symptoms. If you continue to have nosebleeds, I recommend that you continue follow up with your primary care provider for further investigation if nosebleeds continue. *Please follow up with your primary care provider in 2-3 days, call for an appointment. Let them know you were seen in the Emergency Department and that we ask that you be seen in follow up. We will electronically transmit a record of today's note if your PCP is in our system *If you do not have a primary care provider please contact the [facility] Resource line at [phone]. They will ask some questions about your medical history and help get you set up with a doctor in the community. *Return to Emergency Department if you should have any new, worsening or concerning symptoms, such as profuse nasal bleeding, lightheadedness, severe fatigue or other concerning signs or symptoms. Prescriptions: No Action naproxen sodium [Aleve] 220 mg Capsule 220 mg PO PRN PRN (Reason: pain) Pepcid AC 1 tab PO PRN PRN (Reason: Acid Reflux) Referrals: Harper Andujar RN [Primary Care Provider] - Stand Alone Forms: Patient Portal/API ED Sign-out <Princess Pulido DO - Last Filed: 08/01/23 11:17> Cosign ED Attending Nery Attestation: I was available for consultation.
[2023-07-25 14:26] VITALS: BP 112/74; PULSE 75; O2SAT 100
--- NOTE | 2023-07-25 14:26 | PC.NURSE ---
bleeding controlled at this time
== END 2023-07-25 14:35 | disposition home or self-care (01) ==
PROVIDERS: Emergency Provider Physician Assistant; PCP Nurse Practitioner Family
DX: R04.0 Epistaxis (principal)
CPT/HCPCS: 99282; 99283

== ENCOUNTER 2025-02-17 10:22 | Observation (INO) | payer OTHER, SELFPAY ==
[2025-02-17 10:24] VITALS: BP 132/86; PULSE 78; RESP 14; TEMP 36.9; O2SAT 99; BMI 34.7
[2025-02-17 10:43] LABS: Add Manual Diff / Slide Review NO; Hematocrit 38.9 % (41-53); Hemoglobin 13.7 g/dL (13.5-17.5); Lymphocytes Absolute Auto 800 /uL (1100-4500); Mean Corpuscular HGB Conc 35.1 % (30-36); Mean Corpuscular Hemoglobin 38.0 PG (26-34); Mean Corpuscular Volume 108.1 fL (80-100); Platelet Count 241 X10^3/uL (150-400)
--- NOTE | 2025-02-17 10:45 | DI.CT.S_ITS ---
PROCEDURE: CT ABDOMEN PELVIS W CON
--- NOTE | 2025-02-17 10:45 | ED_ITS ---
HPI - Abdominal Pain
--- NOTE | 2025-02-17 10:45 | ED.ABDPAIN ---
HPI - Abdominal Pain General Chief Complaint: Abdominal Pain Stated Complaint: per patient possible Appendicitis. Time Seen by Provider: 02/17/25 10:37 Source: patient Mode of arrival: Ambulatory History of Present Illness HPI narrative: 39-year-old gentleman history of hypertension presents with 2 episodes of nonbilious nonbloody nausea vomiting along with diarrhea in abdominal pain that starts with periumbilical pain radiating to right lower quadrant. Patient did try taking some Imodium with no significant relief of symptoms and a hot shower. He denies back pain, rectal bleeding, hematuria, fever, chills, body aches, cough, chest pain, shortness breath, constipation. Other than what is stated 14 point review system is negative. Related Data Home Medications ?Medication ?Instructions ?Recorded ?Confirmed Pepcid AC 1 tab PO PRN PRN Acid Reflux 01/04/19 01/04/19 naproxen sodium 220 mg capsule 220 mg PO PRN PRN pain 01/04/19 01/04/19 (Aleve) Allergies Allergy/AdvReac Type Severity Reaction Status Date / Time No Known Drug Allergies Allergy Verified 02/17/25 10:24 Review of Systems Review of Systems ROS Unobtainable: All systems reviewed & are unremarkable except as noted in HPI and below Patient History Social History Smoking Status: Unknown if ever smoked Smoking Status: Unknown if ever smoked alcohol intake frequency: 0-2 drinks per day Alcohol type: beer and hard liquor Exam Narrative Exam Narrative: GENERAL: [39] year old patient appears stated age. Well-developed patient, in mild distress. HEAD: Atraumatic. Normocephalic. EYES: Pupils equal round and reactive. Extraocular motions intact. No scleral icterus. No injection or drainage. ENT: Nose without bleeding, purulent drainage. Throat without erythema, tonsillar hypertrophy or exudate. Airway patent. NECK: Trachea midline. Non tender CARDIOVASCULAR: Regular rate and rhythm without murmurs, gallops, or rubs. RESPIRATORY: Clear to auscultation. Breath sounds equal bilaterally. No wheezes, rales, or rhonchi. GASTROINTESTINAL: Abdomen soft, periumbilical and right lower quadrant TTP no r/r/g, nondistended. EXTREMITIES: No edema or joint tenderness. BACK: Nontender without deformity or crepitance. No flank tenderness. NEURO: AOx3. SKIN: No rash or erythema of visible areas Initial Vital Signs Initial Vital Signs: Vital Signs Temperature 98.4 F 02/17/25 10:24 Pulse Rate 78 02/17/25 10:24 Respiratory Rate 14 02/17/25 10:24 Blood Pressure 132/86 02/17/25 10:24 Pulse Oximetry 99 02/17/25 10:24 Oxygen Delivery Method Room Air 02/17/25 10:24 Course Orders Ordered: ED Orders 02/17/25 10:37 Complete Blood Count AUTO DIFF Stat Comprehensive Metabolic Panel Stat Lipase Stat 02/17/25 10:45 CT abdomen pelvis w con Stat Hydromorphone HCl (Hydromorphone 1 Mg/Ml Syringe) 1 mg IV NOW ONE Stop: 02/17/25 12:56 Piperacillin Sod/Tazobactam (Sod 4.5 gm/ Sodium Chloride) 100 mls @ 200 mls/hr IV NOW ONE Stop: 02/17/25 12:56 Ondansetron HCl (Ondansetron 4 Mg/2 Ml Inj) 4 mg IV NOW PRN PRN Reason: Nausea And Vomiting Ondansetron HCl (Ondansetron 4 Mg Odt) 4 mg PO NOW PRN PRN Reason: Nausea And Vomiting Ondansetron HCl (Ondansetron 4 Mg Odt) 4 mg PO NOW PRN PRN Reason: Nausea And Vomiting Discontinued Medications Lactated Ringer's (Lactated Ringers) 1,000 mls @ 1,000 mls/hr IV BOLUS ONE Stop: 02/17/25 11:44 Last Infusion: 02/17/25 12:23 Dose: Infused Documented By: Admin: 02/17/25 10:53 Dose: 1,000 mls/hr Documented By: CELESTE Ketorolac Tromethamine (Ketorolac 30 Mg/Ml Vial) 15 mg IV NOW ONE Stop: 02/17/25 10:46 Last Admin: 02/17/25 10:53 Dose: 15 mg Documented By: CELESTE Ondansetron HCl (Ondansetron 4 Mg/2 Ml Inj) 4 mg IV NOW ONE Stop: 02/17/25 10:46 Last Admin: 02/17/25 10:53 Dose: 4 mg Documented By: CELESTE Vital Signs Vital signs: Vital Signs - 8 hr 02/17/25 10:24 Temperature 98.4 F Pulse Rate 78 Respiratory Rate 14 Blood Pressure 132/86 Pulse Oximetry 99 Oxygen Delivery Method Room Air MDM - Abdominal Pain Lab Data 02/17/25 10:37 02/17/25 10:37 Labs: Lab Results 02/17/25 Range/Units 10:37 WBC 9.7 (4.5-11.0) X10^3/uL RBC 3.59 L (4.5-5.9) X10^6/uL Hgb 13.7 (13.5-17.5) g/dL Hct 38.9 L (41-53) % MCV 108.1 H (80-100) fL MCH 38.0 H (26-34) PG MCHC 35.1 (30-36) % RDW 15.2 H (11.6-14.8) % Plt Count 241 (150-400) X10^3/uL Neut % (Auto) 82.3 H (50-75) % Lymph % (Auto) 8.5 L (25-40) % [place] % (Auto) 8.1 (3-14) % Eos % (Auto) 0.4 L (2-4) % Baso % (Auto) 0.7 (0-2) % Neut # (Auto) 8000 H (8395-7230) /uL Lymph # (Auto) 800 L (8666-4834) /uL [place] # (Auto) 800 (0-900) /uL Eos # (Auto) 0 (0-450) /uL Baso # (Auto) 100 (0-100) /uL Sodium 134 L (137-145) mmol/L Potassium 3.8 (3.4-5.1) mmol/L Chloride 99 (98-107) mmol/L Carbon Dioxide 21 L (22-32) mmol/L BUN 10 (9-20) mg/dL Creatinine 0.76 (0.66-1.25) mg/dL Estimated GFR > 60 (>60) mL/min BUN/Creatinine Ratio 13.2 (6-22) Glucose 109 H (70-99) mg/dL Calcium 9.4 (8.4-10.2) mg/dL Total Bilirubin 1.4 H (0.2-1.3) mg/dL AST 45 (17-59) IU/L ALT 27 (<50) IU/L Alkaline Phosphatase 79 (38-126) U/L Total Protein 8.0 (6.3-8.2) g/dL Albumin 4.6 (3.5-5.0) g/dL Globulin 3.4 (1.7-4.1) g/dL Albumin/Globulin Ratio 1.4 (1.0-2.8) Lipase 189 (23-300) U/L Imaging Data CT scan - abdomen/pelvis: Radiologist's Impression: [address] [address] [address] Scan Report Signed Patient: James Sol MR#: [id number] : 1985 Acct:[id number] Age/Sex: 39 / M Date of Service: 02/17/25 Loc: ED Accession Number: [id number] Procedure: CT abdomen pelvis w con Ordering Provider: Nabeel Damon D.O. PROCEDURE: CT ABDOMEN PELVIS W CON INDICATIONS: abd pain n/v TECHNIQUE: After the administration of intravenous contrast, axial sections acquired from the lung bases to the pubic symphysis. Coronal and sagittal reformats were performed. For radiation dose reduction, the following was used: automated exposure control, adjustment of mA and/or kV according to patient size. COMPARISON: None. FINDINGS: Image quality: Diagnostic. Lower Chest: No significant findings. ABDOMEN: Liver: No solid mass. Lobular contour of the left lobe. Diffuse hepatic steatosis and hepatomegaly. Gallbladder: No radiopaque gallstones or wall thickening. Biliary ducts: No biliary dilation. Pancreas: No ductal dilation. Spleen: Size is within normal limits. Adrenal Glands: No adrenal nodules. Kidneys and Ureters: No hydronephrosis. No solid mass. No complex renal cystic lesion which requires follow up. Stomach and Bowel: Abnormally dilated appendix up to 1.3 centimeter in diameter with fecalith at the base. Trace free fluid in the right pericolic gutter . large bowel is mostly decompressed. No abnormally dilated loops of bowel. Peritoneum: No abnormal intraperitoneal fluid. No free air. Ventral Wall: No significant ventral hernia. Abdominal Nodes: No retroperitoneal or mesenteric adenopathy by size criteria. Vessels: Aorta and inferior vena cava are normal in size. PELVIS: Pelvic Organs: Unremarkable. Bladder: No bladder wall thickening, accounting for underdistention. Pelvic Nodes: No enlarged lymph nodes. Miscellaneous: No inguinal hernias are seen. Bones: No aggressive osseous abnormality. IMPRESSION: Acute uncomplicated appendicitis. Marked hepatic steatosis with morphologic findings associated with cirrhosis. MDM Narrative Medical decision making narrative: All lab work, vital signs, nurse triage note, medication list, previous ER visits, and all imaging studies reviewed. CT scan showed acute uncomplicated appendicitis and marked hepatic steatosis with morphologic findings associated with cirrhosis. Patient given fluids Toradol Dilaudid Zosyn. WBC 9.7 hemoglobin 13.7 lead 241 sodium 134 potassium 3.8 chloride 99 CO2 21 BUN 10 creatinine 0.76 glucose 109 bili 1.4 LFTs normal lipase 189. Case discussed with Dr. Diana surgeon on-call who has accepted the patient for inpatient admission. Discharge Plan Departure Patient Disposition: Admitted as Observation Clinical Impression: Acute appendicitis Qualifiers: Acute appendicitis type: with localized peritonitis Appendicitis gangrene presence: without gangrene Appendicitis perforation presence: without perforation Appendicitis abscess presence: without abscess Qualified Code(s): K35.30 - Acute appendicitis with localized peritonitis, without perforation or gangrene
[2025-02-17] MEDS: LACTATED RINGERS 1,000 ML 1000 ML IV (10:53)
[2025-02-17] MEDS: ONDANSETRON 4 MG/2 ML INJ IV (10:53)
[2025-02-17] MEDS: KETOROLAC 30 MG/ML VIAL 15 MG IV (10:53)
[2025-02-17 11:00] LABS: Alanine Aminotransferase 27 IU/L (<50); Albumin 4.6 g/dL (3.5-5.0); Albumin Globulin Ratio 1.4 (1.0-2.8); Alkaline Phosphatase 79 U/L (38-126); Blood Urea Nitrogen 10 mg/dL (9-20); Calcium 9.4 mg/dL (8.4-10.2); Carbon Dioxide 21 mmol/L (22-32); Chloride 99 mmol/L (98-107); Estimated Glomerular Filt Rate > 60 mL/min (>60); Globulin 3.4 g/dL (1.7-4.1); Glucose 109 mg/dL (70-99); HEMOLYSIS < 15 (0-50); Lipase 189 U/L (23-300); Potassium 3.8 mmol/L (3.4-5.1); Sodium 134 mmol/L (137-145); Total Protein 8.0 g/dL (6.3-8.2)
[2025-02-17] MEDS: PIPERACILLIN/TAZO 4.5 GM in SODIUM CHLORIDE 0.9% 100 ML IV (13:11)
[2025-02-17 13:23] VITALS: BP 136/74; PULSE 81; RESP 18; TEMP 37.2; O2SAT 98
--- NOTE | 2025-02-17 13:53 | P.HP_ITS ---
History of Present Illness
--- NOTE | 2025-02-17 13:53 | PM.HP.IH.1 ---
History of Present Illness History of Present Illness Date Patient Seen: 02/17/25 Time Patient Seen: 13:53 Date of Onset of Symptoms: 02/16/25 Chief complaint: per patient possible Appendicitis. Narrative: 39-year-old gentleman presents to the emergency room earlier today with complaints of severe abdominal pain. The patient reports that it began with a feeling of ?fullness? in misery yesterday PFS Social History household members: significant other Smoking Status: Former smoker alcohol intake: current Meds Home Medications and Allergies Home Medications ?Medication ?Instructions ?Recorded ?Confirmed ?Type Pepcid AC 1 tab PO PRN PRN Acid Reflux 01/04/19 02/17/25 History naproxen sodium 220 mg capsule 220 mg PO PRN PRN pain 01/04/19 02/17/25 History (Aleve) Allergies Allergy/AdvReac Type Severity Reaction Status Date / Time No Known Drug Allergies Allergy Verified 02/17/25 10:24 Exam Vital Signs (past 8 hours): - 02/17/25 10:24 02/17/25 13:23 Temperature 98.4 F 98.9 F Pulse Rate 78 81 Respiratory Rate 14 18 Blood Pressure 132/86 136/74 Pulse Oximetry 99 98 Oxygen Delivery Method Room Air Room Air Oxygen Delivery Method Room Air Objective Labs 02/17/25 19:12 02/17/25 19:12 Labs: Laboratory Results - last 24 hr 02/17/25 10:37 WBC 9.7 RBC 3.59 L Hgb 13.7 Hct 38.9 L MCV 108.1 H MCH 38.0 H MCHC 35.1 RDW 15.2 H Plt Count 241 Neut % (Auto) 82.3 H Lymph % (Auto) 8.5 L [place] % (Auto) 8.1 Eos % (Auto) 0.4 L Baso % (Auto) 0.7 Neut # (Auto) 8000 H Lymph # (Auto) 800 L [place] # (Auto) 800 Eos # (Auto) 0 Baso # (Auto) 100 Sodium 134 L Potassium 3.8 Chloride 99 Carbon Dioxide 21 L BUN 10 Creatinine 0.76 Estimated GFR > 60 BUN/Creatinine Ratio 13.2 Glucose 109 H Calcium 9.4 Total Bilirubin 1.4 H AST 45 ALT 27 Alkaline Phosphatase 79 Total Protein 8.0 Albumin 4.6 Globulin 3.4 Albumin/Globulin Ratio 1.4 Lipase 189 Assessment & Plan Time-Based Coding :: [TOTAL MINUTES] spent with patient and on the chart (including review of chart, obtaining history, exam, reviewing outside data, placing orders, documenting exam and treatment plan, and counseling patient) on [DATE]. [employer] Attendant [employer] Document charge(s): No
[2025-02-17 14:33] VITALS: BMI 35.1
[2025-02-17] MEDS: POTASSIUM CHLORIDE 20 MEQ in DEXTROSE 5%-0.9% NS 1,000 ML 84 MEQ IV (15:24)
[2025-02-17] MEDS: PANTOPRAZOLE 40 MG VIAL IV (15:24)
[2025-02-17] MEDS: HYDROmorphone 2 MG/ML SYRINGE IV ×2 (17:12→20:25)
[2025-02-17 18:00] VITALS: BP 123/73; PULSE 94; RESP 18; TEMP 36.6; O2SAT 96
[2025-02-17 19:23] LABS: Add Manual Diff / Slide Review NO; Hematocrit 34.9 % (41-53); Hemoglobin 11.9 g/dL (13.5-17.5); Lymphocytes Absolute Auto 400 /uL (1100-4500); Mean Corpuscular HGB Conc 34.2 % (30-36); Mean Corpuscular Hemoglobin 37.3 PG (26-34); Mean Corpuscular Volume 108.8 fL (80-100); Platelet Count 191 X10^3/uL (150-400)
[2025-02-17 19:42] LABS: Alanine Aminotransferase 22 IU/L (<50); Albumin 4.1 g/dL (3.5-5.0); Albumin Globulin Ratio 1.5 (1.0-2.8); Alkaline Phosphatase 62 U/L (38-126); Blood Urea Nitrogen 9 mg/dL (9-20); Calcium 8.9 mg/dL (8.4-10.2); Carbon Dioxide 22 mmol/L (22-32); Chloride 99 mmol/L (98-107); Estimated Glomerular Filt Rate > 60 mL/min (>60); Globulin 2.8 g/dL (1.7-4.1); Glucose 120 mg/dL (70-99); HEMOLYSIS < 15 (0-50); Potassium 3.9 mmol/L (3.4-5.1); Sodium 134 mmol/L (137-145); Total Protein 6.9 g/dL (6.3-8.2)
[2025-02-17] MEDS: PIPERACILLIN/TAZO 3.375 GM in SODIUM CHLORIDE 0.9% 100 ML IV (21:11)
[2025-02-18] VITALS (16 sets, daily range): BP systolic 117–151; BP diastolic 56–106; PULSE 80–96; RESP 13–20; TEMP 36.1–37.2; O2SAT 93–97
[2025-02-18] MEDS: HYDROmorphone 2 MG/ML SYRINGE IV (02:39)
[2025-02-18] MEDS: PIPERACILLIN/TAZO 3.375 GM in SODIUM CHLORIDE 0.9% 100 ML IV ×2 (06:37→18:50)
--- NOTE | 2025-02-18 07:26 | EKG_ITS ---
[facility]
--- NOTE | 2025-02-18 07:38 | CM.DANOTE ---
Initial DCP Assessment Note. Review EMR review.. Independent. Lives with adult female, Zena. Payor:??Earnest PCP: Summary & Plan:?39 yo male arrived to ED c/o abd pain. Admitted OBS, Dx AAcute Appy. Plan: OR this AM. Discharge home later today. Discharge Planning/Care Management CM Discharge Assessment Start: 02/17/25 13:26 Freq: Status: Active Protocol: Document 02/18/25 07:36 SM (Rec: 02/18/25 07:38 [id number]) Discharge Planning Assessment Assigned Discharge Mindy Naranjo RN CM Lathe Spotter Provider Dr. Tal Tinoco Advance Directives? No History Provided By Patient,Medical Record Has Patient been No admitted in last 30 days? Prior Living House Arrangements Household Members significant other Type of Drives own vehicle transporation used prior to admit Caregiver for No Another Barriers to No Discharge Discharge Plan Home Transportation Partner, Zena ph#[phone] Arrangement Referrals Initiated None needed Review Status In Process Please Provide Date 02/18/25 Initial DC Assessment Was Performed Next Review Type Continued Stay Review
--- NOTE | 2025-02-18 08:20 | SUR.OPER ---
Supine on padded OR bed, head on pillow, arms secured on padded arm boards at <90 degrees abduction, legs uncrossed, safety belt at thigh, final positioning done by provider
[2025-02-18 09:43] LABS: Add Manual Diff / Slide Review NO; Hematocrit 34.5 % (41-53); Hemoglobin 11.7 g/dL (13.5-17.5); Lymphocytes Absolute Auto 1000 /uL (1100-4500); Mean Corpuscular HGB Conc 34.0 % (30-36); Mean Corpuscular Hemoglobin 36.9 PG (26-34); Mean Corpuscular Volume 108.6 fL (80-100); Platelet Count 226 X10^3/uL (150-400)
--- NOTE | 2025-02-18 09:45 | P.OP_ITS ---
Operative Date/Time/Diagnoses
--- NOTE | 2025-02-18 09:45 | PM.OP.1 ---
Operative Date/Time/Diagnoses Date of procedure: 02/18/25 Time of procedure: 09:46 Pre-op diagnosis: Acute appendicitis Post-op diagnosis: same Procedure & Clinicians Procedure: Laparoscopic Appendectomy Same procedure(s) as scheduled: Yes Surgeon: Arlin Diana Assisted?: No Anesthesia Type: General Operative Notes Findings: Inflamed appendix without evidence of perforation Closure Type: primary Specimen(s): other Prosthetic devices, grafts, tissues, transplants, or devices: Culture submitted for aerobic, anaerobic, and Gram stain. Specimen to pathology Applied: none Estimated Blood Loss (mL): 25 Blood products transfused: none Procedure in detail: Following informed consent, the patient was taken to the operating room and placed in the supine position. General endotracheal anesthesia was successfully initiated. The extremities were carefully padded and positioned bilateral sequential compression devices were placed on both lower extremities. A Perez catheter was then inserted. The abdomen was then prepped and draped in the standard fashion. Sharp dissection with a 11. Blade was used to create a small puncture wound at the upper rim of the umbilicus. Veress needle was inserted. Its intraperitoneal position verified with few drops of normal saline. The abdomen was then insufflated 14 mm Hg pressure. The Veress was removed and a 5 mm port inserted in the standard fashion. Insertion of a 5 mm, 0 degree laparoscope revealed an inflamed appendix without evidence of perforation. Additional ports were then placed. 5 mm port was placed to the right of midline immediately above the groin crease, with care taken to avoid injury to the inferior epigastric vessels. A 12 mm port was placed to the right of midline in a similar position. Both lower ports were placed under direct visualization. The patient was then placed in Trendelenburg and rotated to his left augment shifting of intra-abdominal contents away from the operative field. The appendix became readily apparent. A grasper was placed through the 12 mm port site and dissection carefully begun. Using the LigaSure, the appendiceal sail was carefully dissected and transected. Once this was completed, the left lower quadrant 5 mm port was exchanged for a 12. After grasping the appendix, a white load vascular stapler was then placed in the left lower quadrant port across the base of the appendix. It was transected. Inspection of the staple line revealed no bleeding or leakage of bowel contents. The appendix was placed in a specimen bag and brought out through the right lower quadrant port. It was placed on the back table and swabs obtained for Gram stain, aerobic and anaerobic cultures. It was submitted to pathology. The area was irrigated with 3 L of warmed saline. It was again inspected for any leakage of blood or bowel contents. The ports were then removed and the abdomen allowed to exsufflate. The patient was returned to the supine position. The wounds were then closed. The fascial wounds were closed with 0 Vicryl in a [id number] fashion. All skin wounds were then closed with 4-0 Monocryl in a subcuticular fashion. The wounds were then infiltrated with 30 cc of 0.5% Marcaine with epinephrine. Sponge and needle counts were correct. The wounds were cleansed and dried and dressings were applied. The Preez was removed. The patient was then extubated and taken to the recovery area in stable condition. Complications: none Post-operative Condition: stable Disposition: PACU (Returned to [facility])
--- NOTE | 2025-02-18 09:56 | SUR.PHASEI ---
3 calls to give report to ACU, advised by Michael to bring pt up and do bedside report
--- NOTE | 2025-02-18 10:00 | SUR.PHASEI ---
Lab specimen drawn before surgery hemolyzed; lab at bedside in PACU to redraw CMP/CBC. Notified Soniya on ASC that this has been completed. Called report @ 1000. Pt stable, denies pain or nausea at this time.
[2025-02-18 10:31] LABS: Alanine Aminotransferase 20 IU/L (<50); Albumin 3.9 g/dL (3.5-5.0); Albumin Globulin Ratio 1.3 (1.0-2.8); Alkaline Phosphatase 59 U/L (38-126); Blood Urea Nitrogen 5 mg/dL (9-20); Calcium 8.5 mg/dL (8.4-10.2); Carbon Dioxide 24 mmol/L (22-32); Chloride 101 mmol/L (98-107); Estimated Glomerular Filt Rate > 60 mL/min (>60); Globulin 3.0 g/dL (1.7-4.1); Glucose 133 mg/dL (70-99); HEMOLYSIS 21 (0-50); Potassium 3.6 mmol/L (3.4-5.1); Sodium 136 mmol/L (137-145); Total Protein 6.9 g/dL (6.3-8.2)
[2025-02-18] MEDS: PIPERACILLIN/TAZO 4.5 GM in SODIUM CHLORIDE 0.9% 100 ML IV (10:44)
[2025-02-18 11:32] LABS: Macrocytosis 1+
[2025-02-18] MEDS: PANTOPRAZOLE DR 20 MG TABLET PO (21:05)
[2025-02-19] MEDS: PIPERACILLIN/TAZO 3.375 GM in SODIUM CHLORIDE 0.9% 100 ML IV (03:05)
[2025-02-19 05:25] LABS: Add Manual Diff / Slide Review NO; Hematocrit 30.7 % (41-53); Hemoglobin 10.7 g/dL (13.5-17.5); Lymphocytes Absolute Auto 700 /uL (1100-4500); Mean Corpuscular HGB Conc 34.7 % (30-36); Mean Corpuscular Hemoglobin 37.7 PG (26-34); Mean Corpuscular Volume 108.7 fL (80-100); Platelet Count 194 X10^3/uL (150-400)
[2025-02-19] MEDS: PANTOPRAZOLE DR 20 MG TABLET PO (07:53)
[2025-02-19] MEDS: SODIUM CHLORIDE 0.9% FLUSH 10 ML IV (07:53)
[2025-02-19 08:22] VITALS: BP 138/92; PULSE 92; RESP 17; TEMP 36.8; O2SAT 97
== END 2025-02-19 10:20 | disposition home or self-care (01) ==
LOC: ED 13:03 → AC 13:04 → ICU 14:48 → AC 02-18 07:25
PROVIDERS: Admitting Provider Surgery Surgical Critical Care; Emergency Provider Family Medicine; PCP Family Medicine; Referring Provider Family Medicine; Visit Provider Surgery Surgical Critical Care
PROC: 0DTJ4ZZ Resection of Appendix, Percutaneous Endoscopic Approach (ICD-10-PCS; CPT 44970; principal; 2025-02-18 07:45)
DX: K37 Unspecified appendicitis (principal); R19.7 Diarrhea, unspecified; I10 Essential (primary) hypertension; Z87.891 Personal history of nicotine dependence
CPT/HCPCS: 44970; 36415; 74177; 80053; 82962; 83690; 85025; 87070; 87075; 87205; 93005; 96361; 96365; 96366; 96367; 96368; 96375; 96376; 99284; G0378; J0330; J1100; J1171; J1885; J2405; J2470; J2543; J2704; J3010; J3480; J3490; J7042; J7050; J7120; Q9967

== ENCOUNTER 2025-04-09 12:07 | Emergency (ER) | payer OTHER, SELFPAY ==
[2025-04-09] VITALS (9 sets, daily range): BP systolic 129–148; BP diastolic 74–94; PULSE 71–80; RESP 17–22; TEMP 36.6; O2SAT 95–98; BMI 33.7
--- NOTE | 2025-04-09 12:13 | DI.RAD.S_ITS ---
PROCEDURE: XR CHEST 1V INDICATIONS: Chest Pain TECHNIQUE: One view of the chest was acquired. COMPARISON: [facility], CR, XR THORACIC SPINE 3V, 03/21/2021, 9:27. FINDINGS: Surgical changes and devices: None. Lungs and pleura: An incomplete inspiratory result is noted, causing a crowded appearance to the lung markings. No focal infiltrates are seen. No pneumothorax or significant pleural effusions are seen. Mediastinum: Mediastinal contours appear normal. Heart size is normal. Bones and chest wall: No suspicious bony lesions. Overlying soft tissues appear unremarkable. IMPRESSION: Low lung volumes, without an acute abnormality seen by plain film. Dictated by: Daniel Bob M.D. on 04/09/2025 at 12:04 Approved by: Daniel Bob M.D. on 04/09/2025 at 12:05
--- NOTE | 2025-04-09 12:24 | EKG_ITS ---
[facility] [address] [place] [address] Test Date: 2025-04-09 Pat Name: James Sol Department: [facility] Room: Gender: Male Access Rn: PEGGY DIAZ : 1985 Requested By: Order Number: [id number] Reading MD: Damaso Coy Measurements Intervals Coleman Rate: 73 P: 12 VA: 136 QRS: 36 QRSD: 110 T: 13 QT: 400 QTc: 440 Interpretive Statements Normal sinus rhythm Electronically Signed On 04-11-2025 10:22:24 PST by Damaso Coy
[2025-04-09] MEDS: ASPIRIN 81 MG CHEW TAB 243 MG PO (12:27)
[2025-04-09 12:32] LABS: Add Manual Diff / Slide Review NO; Hematocrit 42.1 % (41-53); Hemoglobin 14.5 g/dL (13.5-17.5); Lymphocytes Absolute Auto 1100 /uL (1100-4500); Mean Corpuscular HGB Conc 34.6 % (30-36); Mean Corpuscular Hemoglobin 37.7 PG (26-34); Mean Corpuscular Volume 108.9 fL (80-100); Platelet Count 256 X10^3/uL (150-400)
[2025-04-09 12:33] LABS: INR 1.0 (0.9-1.3); Prothrombin Time 10.9 SECONDS (9.4-12.5)
--- NOTE | 2025-04-09 12:34 | ED_ITS ---
HPI - Chest Pain General Chief Complaint: Chest Pain Stated Complaint: Chest pain hx Afib feels similar Time Seen by Provider: 04/09/25 12:34 Source: patient Mode of arrival: Ambulatory Limitations: no limitations History of Present Illness HPI narrative: 40-year-old gentleman history of paroxysmal atrial fibrillation on atenolol but no anticoagulation, hypertension on losartan, with recent appendectomy at 7 weeks ago presents with left-sided chest pain started about 5 days ago intermittently worse with certain positions radiating to left axilla at 1 point at this point just localized to underneath the left breast. He has not taken anything for it and denies any leg pain, leg swelling, shortness breath, dyspnea on exertion, cough, fever, chills, body aches, nausea, vomiting, diaphoresis. Other than what is stated 14 point review of system is negative. Related Data Home Medications ?Medication ?Instructions ?Recorded ?Confirmed Pepcid AC 1 tab PO PRN PRN Acid Reflux 01/04/19 03/03/25 atenolol 25 mg tablet 25 mg PO BID 03/03/25 losartan 25 mg tablet 25 mg PO DAILY 03/03/2502/13 Previous Rx's ?Medication ?Instructions ?Recorded diclofenac sodium 75 mg 75 mg PO BID PRN pain #30 ta bs 04/09/25 tablet,delayed release hydrocodone 5 mg-acetaminophen 325 1 tab PO Q4-6H PRN pain #20 tabs 04/09/25 mg tablet Allergies Allergy/AdvReac Type Severity Reaction Status Date / Time No Known Drug Allergies Allergy Verified 03/03/25 11:01 Review of Systems Review of Systems ROS Unobtainable: All systems reviewed & are unremarkable except as noted in HPI and below Patient History Social History household members: significant other Smoking Status: Never smoker alcohol intake: current Smoking Status: Never smoker alcohol intake frequency: 0-2 drinks per day Alcohol type: beer and hard liquor Exam Narrative Exam Narrative: GENERAL: [40] year old patient appears stated age. Well-developed patient, in mild distress. HEAD: Atraumatic. Normocephalic. EYES: Pupils equal round and reactive. Extraocular motions intact. No scleral icterus. No injection or drainage. ENT: Nose without bleeding, purulent drainage. Throat without erythema, tonsillar hypertrophy or exudate. Airway patent. NECK: Trachea midline. Non tender CARDIOVASCULAR: Regular rate and rhythm without murmurs, gallops, or rubs. TTP L sided reproducible chest wall RESPIRATORY: Clear to auscultation. Breath sounds equal bilaterally. No wheezes, rales, or rhonchi. GASTROINTESTINAL: Abdomen soft, non-tender, nondistended. EXTREMITIES: No edema or joint tenderness. BACK: Nontender without deformity or crepitance. No flank tenderness. NEURO: AOx3. SKIN: No rash or erythema of visible areas Initial Vital Signs Initial Vital Signs: Vital Signs Temperature 97.9 F 04/09/25 12:13 Pulse Rate 76 04/09/25 12:13 Respiratory Rate 18 04/09/25 12:13 Blood Pressure 148/82 H 04/09/25 12:13 Pulse Oximetry 97 04/09/25 12:13 Oxygen Delivery Method Room Air 04/09/25 12:13 Course Orders Ordered: ED Orders 04/09/25 12:13 XR chest 1V Stat EKG-12 Lead Stat 04/09/25 12:14 Complete Blood Count AUTO DIFF Stat Comprehensive Metabolic Panel Stat D Dimer Stat Lipase Stat Magnesium Stat NT-proBNP (BNP-Adult 18+) Stat PTT Partial Thromboplastin Steven Stat Prothrombin Time INR Stat Troponin & CK Cardiac Panel Stat 04/09/25 13:44 CT angio chest PE protocol Stat Discontinued Medications Aspirin (Aspirin 81 Mg Chew Tab) 243 mg PO NOW ONE Stop: 04/09/25 12:14 Last Admin: 04/09/25 12:27 Dose: 243 mg Documented By: USHA Ketorolac Tromethamine (Ketorolac 30 Mg/Ml Vial) 15 mg IV NOW ONE Stop: 04/09/25 12:50 Last Admin: 04/09/25 13:02 Dose: 15 mg Documented By: RL Vital Signs Vital signs: Vital Signs - 8 hr 04/09/25 12:13 Temperature 97.9 F Pulse Rate 76 Respiratory Rate 18 Blood Pressure 148/82 H Pulse Oximetry 97 Oxygen Delivery Method Room Air MDM - Chest Pain Lab Data 04/09/25 12:14 04/09/25 12:14 Labs: Lab Results 04/09/25 Range/Units 12:14 WBC 6.5 (4.5-11.0) X10^3/uL RBC 3.86 L (4.5-5.9) X10^6/uL Hgb 14.5 (13.5-17.5) g/dL Hct 42.1 (41-53) % MCV 108.9 H (80-100) fL MCH 37.7 H (26-34) PG MCHC 34.6 (30-36) % RDW 15.5 H (11.6-14.8) % Plt Count 256 (150-400) X10^3/uL Neut % (Auto) 71.7 (50-75) % Lymph % (Auto) 17.5 L (25-40) % [place] % (Auto) 9.3 (3-14) % Eos % (Auto) 0.8 L (2-4) % Baso % (Auto) 0.7 (0-2) % Neut # (Auto) 4600 (6446-4802) /uL Lymph # (Auto) 1100 (9141-7141) /uL [place] # (Auto) 600 (0-900) /uL Eos # (Auto) 0 (0-450) /uL Baso # (Auto) 0 (0-100) /uL PT 10.9 (9.4-12.5) SECONDS INR 1.0 (0.9-1.3) APTT 28 (25.1-36.5) SECONDS D-Dimer 787 H (<500) ng/ml Sodium 141 (137-145) mmol/L Potassium 4.1 (3.4-5.1) mmol/L Chloride 104 (98-107) mmol/L Carbon Dioxide 26 (22-32) mmol/L BUN 9 (9-20) mg/dL Creatinine 0.76 (0.66-1.25) mg/dL Estimated GFR > 60 (>60) mL/min BUN/Creatinine Ratio 11.8 (6-22) Glucose 99 (70-99) mg/dL Calcium 9.1 (8.4-10.2) mg/dL Magnesium 1.2 L (1.6-2.3) mg/dL Total Bilirubin 0.7 (0.2-1.3) mg/dL AST 62 H (17-59) IU/L ALT 33 (<50) IU/L Alkaline Phosphatase 67 (38-126) U/L Total Creatine Kinase 74 (55-170) U/L Troponin I < 0.012 (0.01-0.034) ng/mL NT-Pro-B Natriuret Pep 72 (<125) pg/mL Total Protein 8.4 H (6.3-8.2) g/dL Albumin 4.8 (3.5-5.0) g/dL Globulin 3.6 (1.7-4.1) g/dL Albumin/Globulin Ratio 1.3 (1.0-2.8) Lipase 212 (23-300) U/L Imaging Data Chest x-ray: Radiologist's Impression: [address] [address] XRay Report Signed Patient: James Sol MR#: [id number] : 1985 Acct:[id number] Age/Sex: 40 / M Date of Service: 04/09/25 Loc: ED Accession Number: [id number] Procedure: XR chest 1V Ordering Provider: Nabeel Damon D.O. PROCEDURE: XR CHEST 1V INDICATIONS: Chest Pain TECHNIQUE: One view of the chest was acquired. COMPARISON: [facility], CR, XR THORACIC SPINE 3V, 03/21/2021, 9:27. FINDINGS: Surgical changes and devices: None. Lungs and pleura: An incomplete inspiratory result is noted, causing a crowded appearance to the lung markings. No focal infiltrates are seen. No pneumothorax or significant pleural effusions are seen. Mediastinum: Mediastinal contours appear normal. Heart size is normal. Bones and chest wall: No suspicious bony lesions. Overlying soft tissues appear unremarkable. IMPRESSION: Low lung volumes, without an acute abnormality seen by plain film. CT scan - chest: Radiologist's Impression: [address] [address] [address] Scan Report Signed Patient: James Sol MR#: [id number] : 1985 Acct:[id number] Age/Sex: 40 / M Date of Service: 04/09/25 Loc: ED Accession Number: [id number] Procedure: CT angio chest PE protocol Ordering Provider: Nabeel Damon D.O. PROCEDURE: CT ANGIO CHEST PE PROTOCOL INDICATIONS: dimer TECHNIQUE: After the administration of intravenous contrast, 2 mm thick sections acquired from the pulmonary apices to the posterior costophrenic angles. 3-dimensional maximum intensity projection (MIP) coronal and sagittal reformats were then acquired through the thorax. For radiation dose reduction, the following was used: automated exposure control, adjustment of mA and/or kV according to patient size. COMPARISON: [facility], CT, CT ABDOMEN PELVIS W CON, 02/17/2025, 11:20. [facility], CR, XR CHEST 1V, 04/09/2025, 12:21. FINDINGS: Image quality: There is streak artifact seen through the level of the shoulders. Pulmonary arteries: Pulmonary arteries are normal in size, and demonstrate no intraluminal filling defects to suggest central pulmonary embolism. Lower Neck: No enlarged lymph nodes. Thyroid: No thyroid nodules which require sonographic follow up, per consensus guidelines. Axillae: No enlarged lymph nodes. Chest Wall: Unremarkable. Bones: Unremarkable. Lungs and Pleura: No pneumothorax or pleural effusions. Low lung volumes are noted. This causes a crowded appearance to the lung markings and limits evaluation. No consolidation or suspicious nodules. Heart: Heart size is normal. No pericardial effusion. Thoracic Vessels: No aortic aneurysm. Mediastinum and Ceci: No enlarged lymph nodes. Esophagus: No wall thickening. No hiatal hernia. Upper Abdomen: Diffuse fatty liver infiltration is noted. The visualized portions of the upper abdominal structures are otherwise unremarkable for imaging technique. IMPRESSION: No pulmonary embolus. No acute cardiopulmonary process. Additional findings: Fatty liver infiltration Dictated by: Daniel Bob M.D. on 04/09/2025 at 13:17 Approved by: Daniel Bob M.D. on 04/09/2025 at 13:19 ECG Data Interpretation: NSR HR 73 OH 136 QRS [address]-t wave change Unchanged from 02/18/25 MDM Narrative Medical decision making narrative: All lab work, vital signs, nurse triage note, medication list, previous ER visits, and all imaging studies reviewed. Patient given Toradol here and norco here. Troponin normal D-dimer 787 chest x-ray low lung volumes without acute abnormality. CTA chest pain - neg for no PE. Differential dx PE, anxiety, gerd, chest wall pain d/c home on diclofenac and norco rx. Discharge Plan Departure Patient Disposition: Home Clinical Impression: Chest pain Instructions: DI for Chest Pain Activity Restrictions/Additional Instructions: Return with new or worsening symptoms. Take medicine as directed. Follow up with PCP 1-2 weeks if no improvement in symptoms. Prescriptions: New hydrocodone-acetaminophen 5-325 mg tablet 1 tab PO Q4-6H PRN (Reason: pain) Qty: 20 0RF diclofenac sodium 75 mg tablet,delayed release (DR/EC) 75 mg PO BID PRN (Reason: pain) Qty: 30 0RF No Action atenolol 25 mg tablet 25 mg PO BID losartan 25 mg tablet 25 mg PO DAILY Pepcid AC 1 tab PO PRN PRN (Reason: Acid Reflux) Referrals: James Parada MD [Primary Care Provider, Family Practice] Stand Alone Forms: Patient Portal/API
[2025-04-09 12:36] LABS: PTT Partial Thromboplastin Tim 28 SECONDS (25.1-36.5)
[2025-04-09 12:39] LABS: Alanine Aminotransferase 33 IU/L (<50); Albumin 4.8 g/dL (3.5-5.0); Albumin Globulin Ratio 1.3 (1.0-2.8); Alkaline Phosphatase 67 U/L (38-126); Blood Urea Nitrogen 9 mg/dL (9-20); Calcium 9.1 mg/dL (8.4-10.2); Carbon Dioxide 26 mmol/L (22-32); Chloride 104 mmol/L (98-107); Creatine Kinase 74 U/L (55-170); Estimated Glomerular Filt Rate > 60 mL/min (>60); Globulin 3.6 g/dL (1.7-4.1); Glucose 99 mg/dL (70-99); HEMOLYSIS 45 (0-50); Lipase 212 U/L (23-300); Magnesium 1.2 mg/dL (1.6-2.3); Potassium 4.1 mmol/L (3.4-5.1); Sodium 141 mmol/L (137-145); Total Protein 8.4 g/dL (6.3-8.2)
[2025-04-09 12:50] LABS: NT-proBNP (BNP-Adult 18+) 72 pg/mL (<125); Troponin I < 0.012 ng/mL (0.01-0.034)
[2025-04-09] MEDS: KETOROLAC 30 MG/ML VIAL 15 MG IV (13:02)
--- NOTE | 2025-04-09 13:44 | DI.CT.S_ITS ---
PROCEDURE: CT ANGIO CHEST PE PROTOCOL INDICATIONS: dimer TECHNIQUE: After the administration of intravenous contrast, 2 mm thick sections acquired from the pulmonary apices to the posterior costophrenic angles. 3-dimensional maximum intensity projection (MIP) coronal and sagittal reformats were then acquired through the thorax. For radiation dose reduction, the following was used: automated exposure control, adjustment of mA and/or kV according to patient size. COMPARISON: [facility], CT, CT ABDOMEN PELVIS W CON, 02/17/2025, 11:20. [facility], CR, XR CHEST 1V, 04/09/2025, 12:21. FINDINGS: Image quality: There is streak artifact seen through the level of the shoulders. Pulmonary arteries: Pulmonary arteries are normal in size, and demonstrate no intraluminal filling defects to suggest central pulmonary embolism. Lower Neck: No enlarged lymph nodes. Thyroid: No thyroid nodules which require sonographic follow up, per consensus guidelines. Axillae: No enlarged lymph nodes. Chest Wall: Unremarkable. Bones: Unremarkable. Lungs and Pleura: No pneumothorax or pleural effusions. Low lung volumes are noted. This causes a crowded appearance to the lung markings and limits evaluation. No consolidation or suspicious nodules. Heart: Heart size is normal. No pericardial effusion. Thoracic Vessels: No aortic aneurysm. Mediastinum and Ceci: No enlarged lymph nodes. Esophagus: No wall thickening. No hiatal hernia. Upper Abdomen: Diffuse fatty liver infiltration is noted. The visualized portions of the upper abdominal structures are otherwise unremarkable for imaging technique. IMPRESSION: No pulmonary embolus. No acute cardiopulmonary process. Additional findings: Fatty liver infiltration Dictated by: Daniel Bob M.D. on 04/09/2025 at 13:17 Approved by: Daniel Bob M.D. on 04/09/2025 at 13:19
== END 2025-04-09 15:04 | disposition home or self-care (01) ==
PROVIDERS: Emergency Provider Family Medicine; PCP Family Medicine
DX: R07.89 Other chest pain (principal); I10 Essential (primary) hypertension
CPT/HCPCS: 36415; 71045; 71275; 80053; 82550; 83690; 83735; 83880; 84484; 85025; 85379; 85610; 85730; 93005; 96374; 99284; J1885; Q9967